=== PATIENT | female | born 1945 | race Caucasian/White ===

== ENCOUNTER 2019-06-10 19:58 | Emergency (ER) | payer MEDICARE, BC, SELFPAY ==
--- NOTE | ~2019-06-10 | CT_ITS ---
EXAMINATION: CT brain wo con EXAM DATE: 06/10/2019 22:46 INDICATION: Confusion. TECHNIQUE: Spiral CT of the head was performed without contrast. Axial, coronal and sagittal images were reviewed. The dose-length product (DLP) for this examination was 605.33 mGy-cm. The exposure w as tailored according to patient size, and iterative reconstruction (ASIR) was used as additional dos e reduction technique. Comparison is made to prior examination from 08/26/2017. FINDINGS: Right caudate, left basal ganglia old lacunar infarctions. Old right thalamic lacunar infar ction. There is no acute intraparenchymal hemorrhage. No evidence of intraparenchymal brain mass les ion. No evidence of acute infarction. Please note that initial head CT has limited sensitivity for small or acute infarctions. There is moderate periventricular and subcortical hypodensity, nonspecifi c but probably related to small vessel ischemic disease. There is mild prominence of the sulci and ventricles related to cerebral atrophy. There is intracranial carotid arteriosclerosis. There are no extra-axial collections. There is no mass effect or midline shift. Patient has had bilateral ocu lar lens surgery. Soft tissue is unremarkable. The visualized sinuses and mastoid air cells are wel l aerated. IMPRESSION: 1. No acute intracranial findings. 2. Chronic age related findings. 3. Old lacunar infarctions. Reviewed, dictated and finalized at location A. UNT ADMINISTRATOR
[2019-06-10 20:15] VITALS: BP 119/60; PULSE 69; RESP 16; TEMP 36.5; O2SAT 98
--- NOTE | 2019-06-10 20:15 | ECG_ITS ---
Measurements Intervals [place] Rate: 69 P: 53 GA: 183 QRS: -15 QRSD: 88 T: 68 QT: 372 QTc: 399 Interpretive Statements SINUS RHYTHM WITH SINUS ARRHYTHMIA POOR R WAVE PROGRESSION, ANTERIOR LEADS NONSPECIFIC T-WAVE ABNORMALITY- ANTEROLAT/LAT LEADS BASELINE ARTIFACT- I, II, III, AVR, AVL, AVF BORDERLINE ECG Electronically Signed On 06-11-2019 6:39:42 [employer] TECHNICAL OFFICER by Yehuda Crowe D.O.
[2019-06-10 20:27] LABS: Basophils Percent Auto 0.5 % (0.2-1.2); Eosinophils Absolute Auto 0.1 K/mm3 (0-0.3); Eosinophils Percent Auto 1.5 % (0-4.4); Hematocrit 40.6 % (37.0-47.0); Hemoglobin 12.9 g/dL (12.0-15.0); Immature Granulocyte Absolute 0.02 K/mm3 (0.00-0.031); Immature Granulocyte Percent A 0.3 % (0-0.5); Lymphocytes Percent Auto 20.5 % (18.3-44.2); Mean Corpuscular HGB Conc 31.8 g/dl (32-36); Mean Corpuscular Hemoglobin 30.7 pg (26-34); Mean Corpuscular Volume 96.7 fl (80-100); Mean Platelet Volume 10.5 fl (7.4-10.4); Monocytes Absolute Auto 0.4 K/mm3 (0.1-0.6); Monocytes Percent Auto 5.5 % (2.6-8.5); Neutrophils Absolute Auto 5.2 K/mm3 (1.3-6.7); Neutrophils Percent Auto 71.7 % (45.5-73.1); Platelet Count Result 274 k/mm3 (150-375); Red Cell Distribution Width 12.7 % (11.5-14.5); White Blood Count 7.3 K/mm3 (4.5-10.0)
[2019-06-10 20:38] LABS: Alanine Aminotransferase 15 U/L (4-35); Albumin Level 4.5 g/dL (3.5-5.1); Alkaline Phosphatase 71 U/L (38-126); Aspartate Amino Transferase 17 U/L (14-36); Bilirubin,Total 0.6 mg/dL (0.2-1.3); Blood Urea Nitrogen 26 mg/dL (7-17); Calcium 10.2 mg/dL (8.4-10.2); Carbon Dioxide 31 mmol/L (22-30); Chloride 96 mmol/L (98-107); Estimated Glomerular Filt Rate 55; Glucose 160 mg/dL (65-105); Potassium 4.4 mmol/L (3.4-5.0); Sodium 139 mmol/L (137-145)
[2019-06-10 21:05] VITALS: BP 142/72; PULSE 69; RESP 24; TEMP 36.7; O2SAT 97
--- NOTE | 2019-06-10 21:14 | ED.AMS ---
HPI - Altered Mental Status General Chief Complaint: Altered Mental Status Stated Complaint: AMS X36 hours Time Seen by Provider: 06/10/19 21:12 Source: patient, family and RN notes reviewed Mode of arrival: EMS Limitations: altered mental status History of Present Illness HPI narrative: Pt is a 74 y/o female who presents to the ED, via EMS, with c/o a sudden onset of AMS that began 2 days ago (06/08/19). Pt's family was at bedside and provided the information. Pt's family states that pt normally takes her medication in a small cup and then drinks a glass of water. Pt's family states that the pt did not know what to do with her medication and just kept the pills in her mouth without swallowing. Pt is normally able to ambulate, but the pt's family states that she could only take a couple of steps. He states the pt's blood glucose has been running high. Pt was recently taken off her Metformin and then recently placed back on d/t her blood glucose running high. He notes the pt is able to eat and drink regularly, but the pt has not been eating or drinking. He denies any recent falls. Pt also reports dysuria, but denies a fever and chills. HPI is limited due to pt's AMS. complaint: altered mental status Onset (ago): day(s) (2) Consistency of symptoms: constant Context: change in medication Associated symptoms: loss of appetite and other (dysuria, limited due to pt's AMS) Related Data Allergies Allergy/AdvReac Type Severity Reaction Status Date / Time iodine Allergy Mild Rash Verified 08/25/17 23:30 Sulfa (Sulfonamide Allergy Unknown Unknown Verified 08/25/17 23:30 Antibiotics) Review of Systems Review of Systems: ROS unobtainable: other (limited due to pt's AMS) Constitutional: Constitutional: Denies chills, Denies fever(s) and Reports poor appetite Genitourinary: Genitourinary: Reports dysuria Neurologic: Reports other (AMS) [facility] Past Medical History Medical History (Updated 06/10/19 @ 23:15 by Deepak Vega MD) Anemia Arthritis Back fracture Cataracts, bilateral Closed left arm fracture CVA (cerebrovascular accident) with left sided weakness, x2, 2017 Depression DVT (deep venous thrombosis) HTN (hypertension) Hyperlipidemia Myocardial infarction TIA (transient ischemic attack) Type II diabetes mellitus Ulcer UTI (urinary tract infection) Surgical History Surgical History (Updated 06/10/19 @ 21:45 by Fe Hernandez) H/O vascular surgery to repair the hole in her heart History of cardiac catheterization Hx of CABG Hx of section x2 Hx of heart artery stent Hx of tonsillectomy Social History Social History (Updated 06/10/19 @ 21:45 by Fe Hernandez) Smoking packs per day: 1.5 Smoking cigarettes per day: 30.0 Years smoked: 50 Smoking pack-years: 75.00 Smoking status: Former smoker Tobacco type: cigarettes Second hand tobacco smoke exposure: Yes Gender identity (if verbalized by the patient): Female Exam Const: General: no acute distress and alert Orientation/consciousness: patient oriented x3 HENMT: Head: normal to inspection Eyes: Conjunctivae: conjunctivae normal Pupils: Equal, round and reactive pupils present Neck: Neck: normal visual inspection Chest: Chest palpation & inspection: normal inspection of the chest Resp: Effort & Inspection: normal respiratory effort Auscultation: clear to auscultation bilaterally Cardio: Rate: regular rate GI: GI Palp: Yes Soft to palpation Course Course Emergency Course: Inform patient and her son about her lab work, CT findings. This time there is no evidence of infection or stroke I advised him to continue home medication, follow-up with his primary doctor. Vital Signs Vital signs: Vital Signs Temperature 36.5 C 06/10/19 20:15 Pulse Rate 69 06/10/19 20:15 Respiratory Rate 16 06/10/19 20:15 Blood Pressure 119/60 06/10/19 20:15 Pulse Oximetry 98 06/10/19 20:15 Temperature 36.7 C 0
[2019-06-10 21:31] LABS: Add Urine Microscopic? YES; Appearance Urine Cloudy (Clear); Bilirubin Urine Negative (Negative); Blood Urine Negative (Negative); Color Urine Yellow (Yellow); Glucose Urine UA 2+ mg/dL (Negative); Ketones Urine Negative (Negative); Leukocyte Esterase Ur Negative LEU/UL (Negative); Mucus Urine Rare /lpf; Nitrate Urine Negative (Negative); Protein Urine 1+ mg/dL (Negative); RBC Urine 0-2 /hpf (0-2); Specific Grav Ur 1.028 (1.001-1.035); Squamous Epithelial Cell Urine Moderate /hpf (Few); Urobilinogen Urine Negative mg/dL (<2.0); WBC Urine 0-3 /hpf
[2019-06-10 23:02] VITALS: BP 205/97; PULSE 72; RESP 18; O2SAT 96
== END 2019-06-10 23:43 | disposition home or self-care (01) ==
PROVIDERS: Emergency Medicine; Emergency Provider Family Medicine; PCP Obstetrics & Gynecology
DX: R41.0 Disorientation, unspecified (principal); I69.954 Hemiplegia and hemiparesis following unspecified cerebrovascular disease affecting left non-dominant side; Z86.2 Personal history of diseases of the blood and blood-forming organs and certain disorders involving the immune mechanism; M19.90 Unspecified osteoarthritis, unspecified site; I10 Essential (primary) hypertension; E78.5 Hyperlipidemia, unspecified; I25.2 Old myocardial infarction; E11.9 Type 2 diabetes mellitus without complications; Z87.440 Personal history of urinary (tract) infections; I25.10 Atherosclerotic heart disease of native coronary artery without angina pectoris; Z95.1 Presence of aortocoronary bypass graft; Z86.718 Personal history of other venous thrombosis and embolism; Z95.5 Presence of coronary angioplasty implant and graft; Z87.891 Personal history of nicotine dependence; R94.31 Abnormal electrocardiogram [ECG] [EKG]
CPT/HCPCS: 36415; 51701; 70450; 80053; 81001; 85025; 93005; 99284